=== PATIENT | male | born 1965 | race Hispanic/Latino ===

== ENCOUNTER 2021-01-10 17:52 | Emergency (ER) | payer BC ==
[2021-01-10 18:07] VITALS: BP 145/79
[2021-01-10] MEDS ORDERED: LIDOCAINE (1%) 10 MG/1 ML VIAL 20 ML MDV INFILTRATI ONE (18:10)
[2021-01-10] MEDS ORDERED: IBUPROFEN 600 MG TAB PO ONE (18:10)
--- NOTE | 2021-01-10 18:54 | Emergency Department Report ---
- General Chief Complaint: Laceration/Recheck/Suture Stated Complaint: LAC LT WRIST Source: patient Mode of arrival: Ambulatory Limitations: No Limitations - History of Present Illness Initial Comments: Patient is a 55-year-old male with a history of [id number] diabetes and hypertension who presents to the ED with complaint of acute onset painful bleeding left forearm laceration after he accidentally cut his left forearm with a blade while trimming some furniture at home about 1 hour ago. Patient states that the wound was dressed at home and that the bleeding is well controlled at this time. Patient states that he is up-to-date with all his tetanus vaccinations having received the last vaccination about 1 year ago. Patient denies syncope, nausea, vomiting, dizziness, fall, numbness and tingling or weakness of left forearm or left hand, chest pain or shortness of breath. -: Sudden, hour(s) (1) Location: other (Left forearm) Extremity Location: Left: Forearm (Left forearm bleeding laceration) Place: home Context: accidental, sharp object use Associated Symptoms: pain. denies: loss of feeling/numbness, suspect foreign body present, unable to move injured part, weakness followed by dizziness, nausea/vomiting, fever - Related Data Previous Rx's Medication Instructions Recorded Last Taken Type Ibuprofen [Motrin] 800 mg PO Q8HR PRN #24 tablet 01/10/21 Unknown Rx cephALEXin [Keflex] 500 mg PO Q8HR #30 cap 01/10/21 Unknown Rx Allergies Allergy/AdvReac Type Severity Reaction Status Date / Time No Known Allergies Allergy Unverified 01/10/21 18:06 ED Review of Systems ROS: Stated complaint: LAC LT WRIST Other details as noted in HPI Constitutional: denies: chills, fever Eyes: denies: eye pain, eye discharge, vision change ENT: denies: ear pain, throat pain Respiratory: denies: cough, shortness of breath, wheezing Cardiovascular: denies: chest pain, palpitations Endocrine: no symptoms reported Gastrointestinal: denies: abdominal pain, nausea, diarrhea Genitourinary: denies: urgency, dysuria Musculoskeletal: arthralgia (Left forearm pain due to a bleeding laceration). denies: back pain, joint swelling Skin: other (Bleeding left forearm laceration with localized pain). denies: rash, lesions Neurological: denies: headache, weakness, paresthesias Psychiatric: denies: anxiety, depression Hematological/Lymphatic: denies: easy bleeding, easy bruising ED Past Medical Hx - Past Medical History Previous Medical History?: Yes Hx Hypertension: Yes Hx Diabetes: Yes - Medications Home Medications: Home Medications Medication Instructions Recorded Confirmed Last Taken Type Ibuprofen [Motrin] 800 mg PO Q8HR PRN #24 tablet 01/10/21 Unknown Rx cephALEXin [Keflex] 500 mg PO Q8HR #30 cap 01/10/21 Unknown Rx ED Physical Exam - General Limitations: No Limitations General appearance: alert, in no apparent distress - Head Head exam: Present: atraumatic, normocephalic, normal inspection - Eye Eye exam: Present: normal appearance, PERRL, EOMI Pupils: Present: normal accommodation - ENT ENT exam: Present: normal exam, normal orophraynx, mucous membranes moist, TM's normal bilaterally, normal external ear exam - Neck Neck exam: Present: normal inspection, full ROM - Respiratory Respiratory exam: Present: normal lung sounds bilaterally. Absent: respiratory distress, wheezes, rales, rhonchi, chest wall tenderness, accessory muscle use, decreased breath sounds, prolonged expiratory - Cardiovascular Cardiovascular Exam: Present: regular rate, normal rhythm, normal heart sounds. Absent: systolic murmur, diastolic murmur, rubs, gallop - GI/Abdominal GI/Abdominal exam: Present: soft, normal bowel sounds. Absent: distended, tenderness, guarding, rebound, hyperactive bowel sounds, hypoactive bowel sounds, organomegaly, bruit, pulsatile mass - Extremities Exam Extremities exam: Present: normal inspection, full ROM, tenderness (Palpable localized left forearm tenderness due to a bleeding 2 cm laceration), normal capillary refill. Absent: joint swelling, calf tenderness - Back Exam Back exam: Present: normal inspection, full ROM. Absent: tenderness, CVA tenderness (R), CVA tenderness (L), muscle spasm, paraspinal tenderness, vertebral tenderness - Neurological Exam Neurological exam: Present: alert, oriented X3, CN II-XII intact, normal gait, reflexes normal - Psychiatric Psychiatric exam: Present: normal affect, normal mood - Skin Skin exam: Present: warm, dry, intact, normal color, other (Bleeding left forearm 2 cm laceration). Absent: rash ED Course Vital Signs 01/10/21 18:04 Temperature 98.7 F Pulse Rate 89 Respiratory 18 Rate Blood Pressure 145/79 [Right] O2 Sat by Pulse 95 Oximetry - Laceration /Wound Repair Left Arm Wound Location: upper extremity (Left forearm laceration) Wound Length (cm): 2 Wound's Depth, Shape: linear Wound Explored: contaminated Irrigated w/ Saline (ccs): 200 Betadine Prep?: Yes Anesthesia: 1% Lidocaine Volume Anesthetic (ccs): 7 Wound Debrided: extensive Wound Repaired With: sutures Suture Size/Type: 3:0 Number of Sutures: 5 Layer Closure?: No Sterile Dressing Applied?: No Progress: The left forearm bleeding laceration wound was cleaned extensively with normal saline, and Betadine solution. Lidocaine 1% solution was infiltrated around the wound and when anesthesia was fully achieved, the wound was sutured per protocol and the patient tolerated the procedure well. The wound was then dressed appropriately and on reevaluation, the left forearm is neurovascularly intact. Patient was therefore discharged home on pain medications and prophyl actic antibiotics and advised to return to the ED or to his primary care physician in 12 to 14 days for suture removal or return to the ED immediately if symptoms get worse, otherwise follow-up with his primary care physician in 5 to 7 days for reevaluation. ED Medical Decision Making - Medical Decision Making This is a 55-year-old male with a history of [id number] diabetes and hypertension who presents to the ED with complaint of acute onset painful bleeding left forearm laceration after he accidentally cut his left fo rearm with a blade while trimming some furniture at home about 1 hour ago. Patient states that the wound was dressed at home and that the bleeding is well controlled at this time. Patient states that he is up-to-date with all his tetanus vaccinations having received the last vaccination about 1 year ago. In the ED, patient is alert and oriented x3 and is not in any distress. Patient was treated for pain in the ED and left forearm bleeding laceration was cleaned thoroughly and sutured per protocol. The patient tolerated the procedure well. The wound was thereafter dressed appropriately and on reevaluation, the patient is neurovascularly intact on left forearm. Patient was thereafter discharged home on pain medication and prophylactic antibiotics and advised to follow-up with his primary care physician and 5 to 7 days for reevaluation. Patient was was advised return to the ED immediately if symptoms get worse, otherwise return to the ED or to his primary care physician for suture removal in 12 to 14 days. - Differential Diagnosis Forearm laceration; forearm puncture wound; forearm abrasion Critical care attestation.: If time is entered above; I have spent that time in minutes in the direct care of this critically ill patient, excluding procedure time. ED Disposition Clinical Impression: Laceration of left forearm without complication Qualifiers: Encounter type: initial encounter Qualified Code(s): S51.812A - Laceration without foreign body of left forearm, initial encounter Puncture wound of left forearm without foreign body Qualifiers: Encounter type: initial encounter Qualified Code(s): S51.832A - Puncture wound without foreign body of left forearm, initial encounter Disposition: TO HOME OR SELFCARE Is pt being admited?: No Does the pt Need Aspirin: No Condition: Stable Instructions: Puncture Wound, [id number], Laceration Care, Adult, [id number], Sutured Wound Care, [id number] Additional Instructions: Take medication with food, drink plenty of fluids and follow-up with your primary care physician in 5 to 7 days for reevaluation. Return to the ED immediately if symptoms get worse. Otherwise return to the ED or to your primary care physician in 12 to 14 days for suture removal. Prescriptions: cephALEXin [Keflex] 500 mg PO Q8HR #30 cap Ibuprofen [Motrin] 800 mg PO Q8HR PRN #24 tablet PRN Reason: Pain , Severe (7-10) Referrals: [facility] [Provider Group] - 7-10 days Time of Disposition: 18:58 Print Language: [id number]
== END 2021-01-10 19:10 | disposition home or self-care (01) ==
LOC: ED 17:52
DX: S51.812A Laceration without foreign body of left forearm, initial encounter (principal); S51.832A Puncture wound without foreign body of left forearm, initial encounter; I10 Essential (primary) hypertension; E11.9 Type 2 diabetes mellitus without complications; Z79.899 Other long term (current) drug therapy; W26.9XXA Contact with unspecified sharp object(s), initial encounter; Y93.89 Activity, other specified; Y92.009 Unspecified place in unspecified non-institutional (private) residence as the place of occurrence of the external cause; Y99.8 Other external cause status
CPT/HCPCS: 99282